=== PATIENT | female | born 1985 | race Caucasian/White ===

== ENCOUNTER 2017-09-26 14:57 | Emergency (ER) | payer OTHER, MEDICAID ==
[~2017-09-26] VITALS: Ht 170.2 cm; Wt 59.0 kg
[~2017-09-26 14:57] MED LIST: BIRTH CONTROL PATCH TOP; COLACE 100 MG100 MG PO; IBUPROFEN 800800 M1 PO; IRON; NAPROSYN500 MG PO; PERCOCET 5-3251 EACH PO; VICODIN
[2017-09-26] MEDS ORDERED: AMOXICILLIN 50500 M1 PO (15:35)
[2017-09-26] MEDS ORDERED: HYDROCODONE-AP1 EAC6 PO (15:35)
[2017-09-26] MEDS ORDERED: LIDOCAINE VISC100 ML SWISH&SPIT (15:35)
[2017-09-26 15:47] VITALS: BP 120/64
== END 2017-09-26 15:48 | disposition home or self-care (01) ==
LOC: M.ERS 14:57
DX: K04.7 Periapical abscess without sinus (principal); Z86.14 Personal history of Methicillin resistant Staphylococcus aureus infection; Z98.890 Other specified postprocedural states; Z88.1 Allergy status to other antibiotic agents; Z88.8 Allergy status to other drugs, medicaments and biological substances

== ENCOUNTER 2017-11-03 01:00 | Emergency (ER) | payer OTHER, MEDICAID ==
[~2017-11-03] VITALS: Ht 170.2 cm; Wt 68.0 kg
[~2017-11-03 01:00] MED LIST changes: +AMOXICILLIN 50500 M1 PO; +HYDROCODONE-AP1 EAC6 PO; +LIDOCAINE VISC100 ML SWISH&SPIT
[2017-11-03] MEDS ORDERED: PENICILLIN V P500 MG PO (01:23)
[2017-11-03] MEDS ORDERED: HYDROCODON-ACE1 EAC7 PO (01:23)
[2017-11-03 01:30] VITALS: BP 144/66
== END 2017-11-03 01:32 | disposition home or self-care (01) ==
LOC: M.ERS 01:00
DX: K08.89 Other specified disorders of teeth and supporting structures (principal); F17.210 Nicotine dependence, cigarettes, uncomplicated; Z86.14 Personal history of Methicillin resistant Staphylococcus aureus infection; Z98.890 Other specified postprocedural states; Z88.1 Allergy status to other antibiotic agents; Z88.8 Allergy status to other drugs, medicaments and biological substances

== ENCOUNTER 2017-11-20 11:22 | Emergency (ER) | payer OTHER, MEDICAID ==
[~2017-11-20] VITALS: Ht 170.2 cm; Wt 68.0 kg
[~2017-11-20 11:22] MED LIST changes: +HYDROCODON-ACE1 EAC7 PO; +PENICILLIN V P500 MG PO
[2017-11-20] MEDS ORDERED: PRENATA CHEWAB1 EACH PO (11:34)
[2017-11-20 11:58] LABS: ABSOLUTE BASOPHILS 0.1 thou/uL (0.0-0.2); ABSOLUTE EOSINOPHILS 0.1 thou/uL (0.0-0.7); ABSOLUTE LYMPHOCYTES 3.4 thou/uL (0.8-5.3); ABSOLUTE MONOCYTES 0.8 thou/uL (0.0-1.2); ABSOLUTE NEUTROPHILS 7.3 thou/uL (1.6-8.1); BASOPHILS 0.9 %; EOSINOPHILS 1.2 %; HEMATOCRIT 41.7 % (37.0-47.0); LYMPHOCYTES 29.2 %; MCH 32.4 pg (26.0-34.0); MCHC 33.6 g/dL (28.0-37.0); MCV 96.7 fL (80.0-100.0); MONOCYTES 6.7 %; MPV 8.1 fl. (7.2-11.1); NUCLEATED RBCS 0 /100WBC; PLATELET COUNT* 255 thou/uL (150-400); RBC 4.31 mil/uL (4.20-5.00); RDW-CV 13.4 % (10.5-14.5); WBC 11.7 thou/uL (4.0-11.0)
[2017-11-20 12:02] LABS: URINE BILIRUBIN NEGATIVE (Negative); URINE BLOOD 3+ (Negative); URINE CLARITY SL CLOUDY; URINE COLOR YELLOW; URINE GLUCOSE-RANDOM NEGATIVE (Negative); URINE KETONES NEGATIVE (Negative); URINE LEUKOCYTES-REFLEX TRACE (Negative); URINE NITRITE-REFLEX NEGATIVE (Negative); URINE PROTEIN TRACE (Negative); URINE SPECIFIC GRAVITY 1.025 (1.005-1.030); URINE UROBILINOGEN 0.2 E.U./dl (0.2-1.0)
[2017-11-20 12:25] LABS: CALCIUM 9.1 mg/dL (8.5-10.1); CREATININE 0.6 mg/dL (0.6-1.3); POTASSIUM 3.4 mmol/L (3.5-5.1)
[2017-11-20 12:36] LABS: SQUAMOUS >10 Many /LPF (0-3)
[2017-11-20 12:37] LABS: MUCUS >6 Heavy strn/LPF (None Seen)
[2017-11-20 12:44] LABS: URINE RBC >20 Many /HPF (0-2)
[2017-11-20 12:45] LABS: BACTERIA-REFLEX >30 Many /HPF (None Seen); CASTS None Seen /LPF (None Seen); CRYSTALS None Seen /LPF (None Seen); URINE WBC-REFLEX 0-5 Rare /HPF (0-5)
[2017-11-20 14:03] VITALS: BP 113/63
== END 2017-11-20 14:04 | disposition home or self-care (01) ==
LOC: M.ERS 11:22
PROVIDERS: Nurse Practitioner Family
DX: O20.0 Threatened abortion (principal); F17.210 Nicotine dependence, cigarettes, uncomplicated; Z3A.01 Less than 8 weeks gestation of pregnancy; Z86.14 Personal history of Methicillin resistant Staphylococcus aureus infection; Z98.890 Other specified postprocedural states; Z88.1 Allergy status to other antibiotic agents; Z88.8 Allergy status to other drugs, medicaments and biological substances

== ENCOUNTER 2018-06-13 11:24 | Emergency (ER) | payer OTHER, MEDICAID ==
[~2018-06-13] VITALS: Ht 167.6 cm; Wt 59.0 kg
[~2018-06-13 11:24] MED LIST changes: +PRENATA CHEWAB1 EACH PO
[2018-06-13 11:29] VITALS: BP 118/79
[2018-06-13] MEDS ORDERED: PRENATAL GUMMI1 EACH PO (11:34)
[2018-06-13] MEDS ORDERED: AMOXICILLIN 50500 MG PO (11:35)
[2018-06-13] MEDS ORDERED: ACETAMINOPHEN-1 EAC1 PO (11:51)
[2018-06-13] MEDS ORDERED: KEFLEX500 M1 PO (11:51)
== END 2018-06-13 12:03 | disposition home or self-care (01) ==
LOC: M.ERS 11:24
DX: K04.7 Periapical abscess without sinus (principal); Z86.14 Personal history of Methicillin resistant Staphylococcus aureus infection; Z88.1 Allergy status to other antibiotic agents; F17.210 Nicotine dependence, cigarettes, uncomplicated

== ENCOUNTER 2018-07-04 05:50 | Emergency (ER) | payer OTHER, MEDICAID ==
[~2018-07-04] VITALS: Ht 170.2 cm; Wt 63.5 kg
[~2018-07-04 05:50] MED LIST changes: +ACETAMINOPHEN-1 EAC1 PO; +AMOXICILLIN 50500 MG PO; +KEFLEX500 M1 PO; +PRENATAL GUMMI1 EACH PO
[2018-07-04] MEDS ORDERED: FOLIC ACID1 MG (05:59)
[2018-07-04] MEDS ORDERED: PRENATAL COMPL1 EACH (05:59)
[2018-07-04] MEDS ORDERED: ACETAMINOPHEN-1 EAC1 PO (06:08)
[2018-07-04] MEDS ORDERED: KEFLEX500 M1 PO (06:09)
[2018-07-04 06:17] VITALS: BP 126/66
== END 2018-07-04 06:19 | disposition home or self-care (01) ==
LOC: M.ERS 05:50
DX: K02.9 Dental caries, unspecified (principal); F17.210 Nicotine dependence, cigarettes, uncomplicated; Z88.8 Allergy status to other drugs, medicaments and biological substances; Z98.890 Other specified postprocedural states

== ENCOUNTER 2018-08-25 20:03 | Emergency (ER) | payer OTHER, MEDICAID ==
[~2018-08-25] VITALS: Ht 170.2 cm; Wt 68.0 kg
[~2018-08-25 20:03] MED LIST changes: +FOLIC ACID1 MG; +PRENATAL COMPL1 EACH
[2018-08-25] MEDS ORDERED: TYLENOL EXTRA500 MG PO (20:35)
[2018-08-25 21:22] LABS: ABSOLUTE BASOPHILS 0.1 thou/uL (0.0-0.2); ABSOLUTE EOSINOPHILS 0.1 thou/uL (0.0-0.7); ABSOLUTE LYMPHOCYTES 1.7 thou/uL (0.8-5.3); ABSOLUTE MONOCYTES 0.8 thou/uL (0.0-1.2); BASOPHILS 0.3 %; EOSINOPHILS 0.5 %; HEMATOCRIT 40.9 % (37.0-47.0); HEMOGLOBIN 13.8 gm/dL (12.0-15.0); LYMPHOCYTES 10.8 %; MCH 33.2 pg (26.0-34.0); MCHC 33.8 g/dL (28.0-37.0); MCV 98.2 fL (80.0-100.0); MPV 8.3 fl. (7.2-11.1); NUCLEATED RBCS 0 /100WBC; PLATELET COUNT* 300 thou/uL (150-400); POLYS 83.4 %; RBC 4.16 mil/uL (4.20-5.00); WBC 15.6 thou/uL (4.0-11.0)
[2018-08-25 21:27] LABS: CALCIUM 8.6 mg/dL (8.5-10.1); CREATININE 0.5 mg/dL (0.6-1.3); POTASSIUM 3.7 mmol/L (3.5-5.1)
[2018-08-25 21:31] LABS: TOTAL BILIRUBIN 0.3 mg/dL (<0.1-1.0); TOTAL PROTEIN 7.1 g/dL (6.4-8.2)
[2018-08-25 22:20] LABS: URINE BILIRUBIN NEGATIVE (Negative); URINE BLOOD NEGATIVE (Negative); URINE CLARITY CLEAR; URINE COLOR YELLOW; URINE GLUCOSE-RANDOM NEGATIVE (Negative); URINE KETONES 1+ (Negative); URINE LEUKOCYTES-REFLEX NEGATIVE (Negative); URINE NITRITE-REFLEX NEGATIVE (Negative); URINE PROTEIN NEGATIVE (Negative); URINE SPECIFIC GRAVITY 1.015 (1.005-1.030); URINE UROBILINOGEN 0.2 E.U./dl (0.2-1.0)
[2018-08-25] MEDS ORDERED: ZOFRAN ODT4 MG PO (22:30)
[2018-08-25 22:55] VITALS: BP 105/60
== END 2018-08-25 22:55 | disposition home or self-care (01) ==
LOC: M.ERS 20:03
PROVIDERS: Nurse Practitioner Family
DX: O99.612 Diseases of the digestive system complicating pregnancy, second trimester (principal); Z3A.20 20 weeks gestation of pregnancy; A08.4 Viral intestinal infection, unspecified; F17.210 Nicotine dependence, cigarettes, uncomplicated; Z98.890 Other specified postprocedural states; Z88.1 Allergy status to other antibiotic agents; Z88.8 Allergy status to other drugs, medicaments and biological substances

== ENCOUNTER 2018-11-25 15:28 | Emergency (ER) | payer OTHER, MEDICAID ==
[~2018-11-25] VITALS: Ht 170.2 cm; Wt 81.7 kg
[~2018-11-25 15:28] MED LIST changes: +TYLENOL EXTRA500 MG PO; +ZOFRAN ODT4 MG PO
[2018-11-25] MEDS ORDERED: FLEXERIL PO (15:34)
[2018-11-25] MEDS ORDERED: HEPARIN 1,1000 UNIT/ IM (15:35)
[2018-11-25] MEDS ORDERED: FLONASE 0.05%50 MCG NASAL (15:51)
[2018-11-25] MEDS ORDERED: AUGMENTIN 875-1 EACH PO (15:51)
[2018-11-25 16:25] VITALS: BP 135/77
== END 2018-11-25 16:26 | disposition home or self-care (01) ==
LOC: M.ERS 15:28
DX: O26.893 Other specified pregnancy related conditions, third trimester (principal); Z3A.32 32 weeks gestation of pregnancy; J01.00 Acute maxillary sinusitis, unspecified; Z86.14 Personal history of Methicillin resistant Staphylococcus aureus infection; Z98.890 Other specified postprocedural states; F17.210 Nicotine dependence, cigarettes, uncomplicated; Z88.1 Allergy status to other antibiotic agents; Z88.8 Allergy status to other drugs, medicaments and biological substances

== ENCOUNTER 2019-01-16 15:52 | Emergency (ER) | payer OTHER, MEDICAID ==
[~2019-01-16] VITALS: Ht 170.2 cm; Wt 79.4 kg
[~2019-01-16 15:52] MED LIST changes: +AUGMENTIN 875-1 EACH PO; +FLEXERIL PO; +FLONASE 0.05%50 MCG NASAL; +HEPARIN 1,1000 UNIT/ IM
[2019-01-16 16:26] LABS: ABSOLUTE BASOPHILS 0.1 thou/uL (0.0-0.2); ABSOLUTE EOSINOPHILS 0.2 thou/uL (0.0-0.7); ABSOLUTE NEUTROPHILS 15.7 thou/uL (1.6-8.1); BASOPHILS 0.3 %; HEMATOCRIT 44.8 % (37.0-47.0); HEMOGLOBIN 14.9 gm/dL (12.0-15.0); LYMPHOCYTES 10.5 %; MCH 31.3 pg (26.0-34.0); MCHC 33.2 g/dL (28.0-37.0); MCV 94.3 fL (80.0-100.0); MONOCYTES 5.3 %; MPV 8.6 fl. (7.2-11.1); NUCLEATED RBCS 0 /100WBC; PLATELET COUNT* 352 thou/uL (150-400); POLYS 82.9 %; RBC 4.75 mil/uL (4.20-5.00); RDW-CV 12.6 % (10.5-14.5); WBC 18.9 thou/uL (4.0-11.0)
[2019-01-16 16:29] LABS: CALCIUM 9.3 mg/dL (8.5-10.1); CREATININE 0.7 mg/dL (0.6-1.3); POTASSIUM 4.3 mmol/L (3.5-5.1)
[2019-01-16 16:33] LABS: URINE BILIRUBIN NEGATIVE (Negative); URINE BLOOD 2+ (Negative); URINE CLARITY CLEAR; URINE COLOR YELLOW; URINE GLUCOSE-RANDOM NEGATIVE (Negative); URINE KETONES NEGATIVE (Negative); URINE NITRITE-REFLEX NEGATIVE (Negative); URINE PROTEIN NEGATIVE (Negative); URINE SPECIFIC GRAVITY 1.025 (1.005-1.030); URINE UROBILINOGEN 0.2 E.U./dl (0.2-1.0)
[2019-01-16 16:34] LABS: ALBUMIN 3.9 g/dL (3.4-5.0); TOTAL BILIRUBIN 0.3 mg/dL (<0.1-1.0); TOTAL PROTEIN 8.2 g/dL (6.4-8.2)
[2019-01-16 16:34] LABS: URINE LEUKOCYTES-REFLEX 2+ (Negative)
[2019-01-16 16:38] LABS: CASTS None Seen /LPF (None Seen); CRYSTALS None Seen /LPF (None Seen); MUCUS 4-6 Moderate strn/LPF (None Seen); SQUAMOUS >10 Many /LPF (0-3); URINE RBC 3-10 Few /HPF (0-2); URINE WBC-REFLEX 6-15 Few /HPF (0-5)
[2019-01-16] MEDS ORDERED: BACTRIM DS TAB1 EACH PO (18:26)
[2019-01-16] MEDS ORDERED: ZOFRAN4 MG PO (18:27)
[2019-01-16] MEDS ORDERED: NORCO 5-325 TA1 EACH PO (18:39)
[2019-01-16 18:47] VITALS: BP 123/68
== END 2019-01-16 18:49 | disposition home or self-care (01) ==
LOC: M.ERS 15:52
PROVIDERS: Nurse Practitioner Family
DX: K52.9 Noninfective gastroenteritis and colitis, unspecified (principal); N39.0 Urinary tract infection, site not specified; A59.9 Trichomoniasis, unspecified; F17.210 Nicotine dependence, cigarettes, uncomplicated; Z98.890 Other specified postprocedural states; Z86.14 Personal history of Methicillin resistant Staphylococcus aureus infection; Z88.1 Allergy status to other antibiotic agents; Z88.8 Allergy status to other drugs, medicaments and biological substances

== ENCOUNTER 2019-05-23 03:56 | Emergency (ER) | payer OTHER ==
[~2019-05-23] VITALS: Ht 170.2 cm; Wt 68.0 kg
[~2019-05-23 03:56] MED LIST changes: +BACTRIM DS TAB1 EACH PO; +NORCO 5-325 TA1 EACH PO; +ZOFRAN4 MG PO
[2019-05-23] MEDS ORDERED: PREDNISONE50 MG PO (04:14)
[2019-05-23] MEDS ORDERED: TRIAMCINOLONE A80 G2 TOP (04:14)
[2019-05-23 04:32] VITALS: BP 122/81
== END 2019-05-23 04:32 | disposition home or self-care (01) ==
LOC: M.ERS 03:56
DX: L23.7 Allergic contact dermatitis due to plants, except food (principal); F17.210 Nicotine dependence, cigarettes, uncomplicated; Z88.8 Allergy status to other drugs, medicaments and biological substances; Z98.890 Other specified postprocedural states

== ENCOUNTER 2021-02-02 12:48 | Emergency (ER) | payer OTHER ==
[~2021-02-02] VITALS: Ht 170.2 cm; Wt 59.0 kg
[~2021-02-02 12:48] MED LIST changes: +PREDNISONE50 MG PO; +TRIAMCINOLONE A80 G2 TOP
[2021-02-02] MEDS ORDERED: NAPROSYN500 MG PO (15:28)
[2021-02-02] MEDS ORDERED: ZANAFLEX4 MG PO (15:28)
[2021-02-02 15:53] VITALS: BP 99/52
== END 2021-02-02 15:54 | disposition home or self-care (01) ==
LOC: M.ERS 12:48
DX: S63.592A Other specified sprain of left wrist, initial encounter (principal); S63.591A Other specified sprain of right wrist, initial encounter; S50.02XA Contusion of left elbow, initial encounter; S20.212A Contusion of left front wall of thorax, initial encounter; F17.210 Nicotine dependence, cigarettes, uncomplicated; Z98.890 Other specified postprocedural states; Z98.51 Tubal ligation status; Z86.14 Personal history of Methicillin resistant Staphylococcus aureus infection; Z88.1 Allergy status to other antibiotic agents; Z88.8 Allergy status to other drugs, medicaments and biological substances; W01.0XXA Fall on same level from slipping, tripping and stumbling without subsequent striking against object, initial encounter; Y93.89 Activity, other specified; Y92.89 Other specified places as the place of occurrence of the external cause; Y99.8 Other external cause status

== ENCOUNTER 2021-09-15 17:35 | Emergency (ER) | payer OTHER, MEDICAID ==
[~2021-09-15] VITALS: Ht 170.2 cm; Wt 63.5 kg
[~2021-09-15 17:35] MED LIST changes: +ZANAFLEX4 MG PO
[2021-09-15 18:06] LABS: URINE BILIRUBIN NEGATIVE (Negative); URINE BLOOD NEGATIVE (Negative); URINE CLARITY CLEAR; URINE COLOR YELLOW; URINE GLUCOSE-RANDOM NEGATIVE (Negative); URINE KETONES NEGATIVE (Negative); URINE LEUKOCYTES NEGATIVE (Negative); URINE NITRITE NEGATIVE (Negative); URINE PROTEIN NEGATIVE (Negative); URINE UROBILINOGEN 0.2 E.U./dl (0.2-1.0)
[2021-09-15 19:21] VITALS: BP 120/72
== END 2021-09-15 19:21 | disposition home or self-care (01) ==
LOC: M.ERS 17:35
PROVIDERS: Physician Assistant
DX: Z20.2 Contact with and (suspected) exposure to infections with a predominantly sexual mode of transmission (principal); N89.8 Other specified noninflammatory disorders of vagina; R51.9 Headache, unspecified; R09.89 Other specified symptoms and signs involving the circulatory and respiratory systems; F17.210 Nicotine dependence, cigarettes, uncomplicated; Z88.1 Allergy status to other antibiotic agents; Z88.8 Allergy status to other drugs, medicaments and biological substances; Z98.890 Other specified postprocedural states; Z98.51 Tubal ligation status; Z86.14 Personal history of Methicillin resistant Staphylococcus aureus infection